=== PATIENT | male | born 1975 | race Caucasian/White ===

== ENCOUNTER → 2023-03-15 08:17 | Outpatient (REF) | payer BC, SELFPAY | LOC: DHCBS HW 08:17 | PROVIDERS: ATTENDING PHYSICIAN Internal Medicine Cardiovascular Disease; FAMILY PHYSICIAN Family Medicine | DX: I77.810 Thoracic aortic ectasia (principal); I71.9 Aortic aneurysm of unspecified site, without rupture | CPT/HCPCS: 93306 ==

== ENCOUNTER → 2024-03-20 08:02 | Outpatient (REF) | payer BC, SELFPAY | LOC: HWRCS 08:02 | PROVIDERS: ATTENDING PHYSICIAN Internal Medicine Cardiovascular Disease; FAMILY PHYSICIAN Family Medicine | DX: I71.9 Aortic aneurysm of unspecified site, without rupture (principal); I77.810 Thoracic aortic ectasia | CPT/HCPCS: 93306 ==

== ENCOUNTER → 2024-08-30 09:15 | Outpatient (REF) | payer BC, SELFPAY ==
[2024-08-30 09:52] LABS: Hematocrit 44.5 % (39.0-52.0); Hemoglobin 15.5 g/dL (13.0-18.0); Mean Corp Hgb Conc. 34.8 g/dL (33.0-37.0); Mean Corpuscular Volume 86.4 fL (80.0-94.0); Nucleated Red Blood Cells % 0 % (-); Platelet Count 174 10^3/uL (130-400); Red Cell Dist. Width 11.9 % (11.5-14.5)
[2024-08-30 12:00] LABS: ALT (SGPT) 57 U/L (0-50); AST (SGOT) 44 U/L (17-59); Albumin 4.8 g/dl (3.5-5.0); Alkaline Phosphatase 31 U/L (38-126); Blood Urea Nitrogen 20 mg/dl (9-20); Calcium 10.0 mg/dl (8.4-10.2); Carbon Dioxide 30 mmol/L (22-30); Chloride 104 mmol/L (98-107); Glucose 93 mg/dl (70-99); HDL Cholesterol 53 mg/dl; LDL Cholesterol, Calculated 79 mg/dl; Potassium 4.3 mmol/L (3.5-5.1); Sodium 139 mmol/L (135-145); Total Protein 7.3 g/dl (6.3-8.2); Very Low Density Lipoprotein 20 mg/dl (0-30); eGFR > 60.00
== END ==
LOC: REG 09:15
PROVIDERS: ATTENDING PHYSICIAN Internal Medicine Cardiovascular Disease; FAMILY PHYSICIAN Family Medicine
DX: E78.00 Pure hypercholesterolemia, unspecified (principal); I77.810 Thoracic aortic ectasia; I71.9 Aortic aneurysm of unspecified site, without rupture; I35.1 Nonrheumatic aortic (valve) insufficiency
CPT/HCPCS: 36415; 80053; 80061; 85025

== ENCOUNTER 2024-09-01 06:36 | Day surgery (SDC) | payer BC, SELFPAY ==
[2024-09-01] VITALS (9 sets, daily range): BP systolic 100–141; BP diastolic 75–88; BMI 24.1
[2024-09-01] MEDS: LOW STRENGTH ASPIRIN 324 MG PO (08:46)
--- NOTE | 2024-09-01 10:12 | ITS.CL.CATH ---
[employer] - Catheterization
Cardiac Catheterization
Procedure Report:
LEFT HEART CATHETERIZATION
Date of Procedure: September 01, 2024
Referring: Dr. Molly Leigh
PROCEDURES:
1. Left heart catheterization with coronary and single-plane left ventriculography
INDICATION: Dilated aortic root with family history of aortic dissection
ACCESS: Right radial artery, 6 [place] sheath
HEMODYNAMICS : (mmHg)
AO (s/d) : 117/82
LV (s/d) : 120/4
LVEDP : 12
CORONARY FINDINGS
DOMINANCE: Right
LEFT MAIN: Normal
LEFT ANTERIOR DESCENDING: The LAD arises normally from the left main and runs in the anterior interventricular groove. The LAD has minor irregularities over its course but no focal obstructive stenosis.
CIRCUMFLEX: The circumflex is large and supplies a single sizable obtuse marginal branch that bifurcates distally. OM 2 is small
RIGHT CORONARY ARTERY: The right coronary artery is a large-caliber dominant vessel with a 30% stenosis in its midportion. The PDA is a large and the posterolateral branch is a large
VENTRICULOGRAPHY: Left ventriculography is performed in SCANLON projection. The digital single-plane left ventricular ejection fraction is visually estimated at 55%
SEDATION: 25 minutes of procedural sedation was utilized. An independent medical imaging tech was present to assist with and help manage the patient's level of consciousness and physiologic status.
RADIATION SUMMARY: Fluoro Time (min): 4.5, Dose (mGy): 390, DAP (Gy.cm2) : 31.9
Closure Device: TR band
CONCLUSIONS
1. Nonobstructive coronary disease
2. Preserved LV systolic function
Copy to: Dr. Guillermo Canela MD
== END 2024-09-01 13:13 | disposition home or self-care (01) ==
LOC: CATH 06:36
PROVIDERS: ATTENDING PHYSICIAN Internal Medicine Interventional Cardiology; FAMILY PHYSICIAN Family Medicine; OTHER PHYSICIAN Internal Medicine Cardiovascular Disease
DX: I77.810 Thoracic aortic ectasia (principal); I25.10 Atherosclerotic heart disease of native coronary artery without angina pectoris; I35.1 Nonrheumatic aortic (valve) insufficiency; R76.8 Other specified abnormal immunological findings in serum; Z79.82 Long term (current) use of aspirin; Z79.899 Other long term (current) drug therapy
CPT/HCPCS: 99152; 99153; 93458; C1894; Q9967

== ENCOUNTER → 2024-11-17 12:54 | Outpatient (REF) | payer BC, SELFPAY | LOC: RCS 12:54 | PROVIDERS: ATTENDING PHYSICIAN Internal Medicine Cardiovascular Disease; FAMILY PHYSICIAN Family Medicine | DX: R55 Syncope and collapse (principal) | CPT/HCPCS: 93306 ==

== ENCOUNTER → 2024-11-23 15:32 | Outpatient (REF) | payer BC, SELFPAY | LOC: HWRAD 15:32 | PROVIDERS: ATTENDING PHYSICIAN Nurse Practitioner; FAMILY PHYSICIAN Family Medicine | DX: I71.9 Aortic aneurysm of unspecified site, without rupture (principal) | CPT/HCPCS: 71046 ==